=== PATIENT | female | born 1985 | race Caucasian/White ===

== ENCOUNTER 2021-03-08 16:26 | Emergency (ER) | payer OTHER ==
[~2021-03-08] VITALS: Ht 154.9 cm; Wt 65.9 kg
[~2021-03-08 16:26] MED LIST: ONDA8TAB9 PO; OXYC-145 PO
[2021-03-08 16:36] VITALS: BP 125/85
[2021-03-08] MEDS ORDERED: cyclobenzaprine 10mg tablet PO ONE (17:00)
[2021-03-08] MEDS ORDERED: ibuprofen tablet 400 MG TABLET PO ONE (17:00)
[2021-03-08] MEDS ORDERED: CYCL-1 PO (17:09)
[2021-03-08] MEDS ORDERED: IBUP-1984 PO (17:09)
== END 2021-03-08 17:21 | disposition home or self-care (01) ==
LOC: ER 16:27
DX: S29.012A Strain of muscle and tendon of back wall of thorax, initial encounter (principal); M25.512 Pain in left shoulder; Z87.81 Personal history of (healed) traumatic fracture; Z98.891 History of uterine scar from previous surgery; Z98.51 Tubal ligation status; Z88.8 Allergy status to other drugs, medicaments and biological substances; Z79.899 Other long term (current) drug therapy; W22.8XXA Striking against or struck by other objects, initial encounter; Y93.89 Activity, other specified; Y92.89 Other specified places as the place of occurrence of the external cause; Y99.8 Other external cause status
CPT/HCPCS: 99283

== ENCOUNTER 2022-06-22 13:30 | Emergency (ER) | payer BC, OTHER ==
[~2022-06-22] VITALS: Ht 154.9 cm; Wt 65.0 kg
[~2022-06-22 13:30] MED LIST changes: +CYCL-1 PO
[2022-06-22] MEDS ORDERED: ketorolac trometh inj. 60 MG/2 ML VIAL IM ONE (16:05)
[2022-06-22 16:43] VITALS: BP 107/76
== END 2022-06-22 16:45 | disposition home or self-care (01) ==
LOC: ER 13:30
DX: S30.1XXA Contusion of abdominal wall, initial encounter (principal); Z88.5 Allergy status to narcotic agent; Z87.81 Personal history of (healed) traumatic fracture; Z98.890 Other specified postprocedural states; Z90.49 Acquired absence of other specified parts of digestive tract; Z79.899 Other long term (current) drug therapy; W18.39XA Other fall on same level, initial encounter; Y93.89 Activity, other specified; Y92.89 Other specified places as the place of occurrence of the external cause; Y99.8 Other external cause status
CPT/HCPCS: 76881; 96372; 99284; J1885

== ENCOUNTER 2024-09-16 11:53 | Emergency (ER) | payer BC, OTHER ==
[~2024-09-16] VITALS: Ht 154.9 cm; Wt 69.5 kg
[2024-09-16 13:15] VITALS: BP 124/68; PULSE 70; RESP 16; TEMP 97.7; O2SAT 99
== END 2024-09-16 13:21 | disposition home or self-care (01) ==
LOC: ER 11:54 → EEVIPCON 11:54 → ER 13:21
DX: S93.601A Unspecified sprain of right foot, initial encounter (principal); Z88.5 Allergy status to narcotic agent; Z88.8 Allergy status to other drugs, medicaments and biological substances; Z98.51 Tubal ligation status; W22.8XXA Striking against or struck by other objects, initial encounter; Y93.39 Activity, other involving climbing, rappelling and jumping off; Y92.89 Other specified places as the place of occurrence of the external cause; Y99.8 Other external cause status
CPT/HCPCS: 73630; 99283; L4360